=== PATIENT | male | born 1950 | race Native Hawaiian/Other Pacific Islander ===

== ENCOUNTER 2017-05-20 05:20 | Outpatient (CLI) | payer OTHER | END 2017-05-20 05:32 | disposition short-term general hospital (02) | LOC: AMB 05:20 | DX: R56.9 Unspecified convulsions (principal); E11.65 Type 2 diabetes mellitus with hyperglycemia | CPT/HCPCS: A0425; A0427 ==

== ENCOUNTER 2017-05-20 05:33 | Emergency (ER) | payer OTHER ==
[~2017-05-20] VITALS: Ht 180.3 cm; Wt 104.3 kg
[2017-05-20 06:13] LABS: PLATELET COUNT 340 K/uL (142-355)
[2017-05-20 08:01] LABS: PARTIAL THROMBOPLASTIN TIME 26.3 SECONDS (24.5-33.6)
[2017-05-20 09:30] VITALS: TEMP 97.9
[2017-05-20 10:11] LABS: POTASSIUM 4.7 mmol/L (3.6-5.2)
[2017-05-20 10:17] LABS: SODIUM 115.8 mmol/L (136-145)
[2017-05-20 11:15] VITALS: BP 175/82
== END 2017-05-20 11:58 | disposition short-term general hospital (02) ==
LOC: ED 05:33
PROC: 0T9B70Z Drainage of Bladder with Drainage Device, Via Natural or Artificial Opening (ICD-10-PCS; principal; 2017-05-20)
DX: R65.10 Systemic inflammatory response syndrome (SIRS) of non-infectious origin without acute organ dysfunction (principal); E11.10 Type 2 diabetes mellitus with ketoacidosis without coma; R56.9 Unspecified convulsions; I48.91 Unspecified atrial fibrillation; I48.92 Unspecified atrial flutter
CPT/HCPCS: 36415; 36600; 51702; 80053; 80307; 80320; 81000; 81002; 82550; 82805; 82962; 83605; 84484; 85007; 85027; 85610; 85730; 87040; 93005; 94760; 96360; 96361; 96365; 96366; 96375; 99285; J0696; J1815; J2060; J3370

== ENCOUNTER 2017-05-20 12:15 | Outpatient (CLI) | payer OTHER | END 2017-05-20 13:28 | disposition short-term general hospital (02) | LOC: AMB 12:15 | DX: R65.10 Systemic inflammatory response syndrome (SIRS) of non-infectious origin without acute organ dysfunction (principal); E11.10 Type 2 diabetes mellitus with ketoacidosis without coma; R56.9 Unspecified convulsions; I48.91 Unspecified atrial fibrillation; I48.92 Unspecified atrial flutter | CPT/HCPCS: A0425; A0427 ==

== ENCOUNTER 2018-06-04 15:17 | Outpatient (CLI) | payer OTHER | END 2018-06-04 15:27 | disposition short-term general hospital (02) | LOC: AMB 15:17 | DX: R06.02 Shortness of breath (principal) | CPT/HCPCS: A0425; A0427 ==

== ENCOUNTER 2018-06-04 15:30 | Emergency (ER) | payer OTHER ==
[~2018-06-04] VITALS: Ht 182.9 cm; Wt 113.4 kg
[2018-06-04 16:19] LABS: PLATELET COUNT 382 K/uL (142-355)
[2018-06-04 16:46] LABS: POTASSIUM 5.1 mmol/L (3.6-5.2)
[2018-06-04 20:41] VITALS: BP 145/83; TEMP 98
== END 2018-06-04 20:41 | disposition short-term general hospital (02) ==
LOC: ED 15:35
PROVIDERS: Family Medicine
PROC: 0T9B70Z Drainage of Bladder with Drainage Device, Via Natural or Artificial Opening (ICD-10-PCS; principal; 2018-06-04)
DX: E11.10 Type 2 diabetes mellitus with ketoacidosis without coma (principal); A41.9 Sepsis, unspecified organism; E11.52 Type 2 diabetes mellitus with diabetic peripheral angiopathy with gangrene; I96 Gangrene, not elsewhere classified; R79.89 Other specified abnormal findings of blood chemistry; R06.02 Shortness of breath
CPT/HCPCS: 36415; 36600; 51702; 80053; 81000; 81002; 82550; 82805; 82962; 83605; 83880; 84484; 85027; 85379; 87040; 87088; 87205; 93005; 94660; 96361; 96365; 96375; 99285; J1815; J1940; J2060; J2543; J3490

== ENCOUNTER 2022-02-03 08:08 | Observation (INO) | payer OTHER ==
[~2022-02-03] VITALS: Ht 167.6 cm; Wt 53.2 kg
[2022-02-03] VITALS (16 sets, daily range): BP systolic 100–149; BP diastolic 60–94; TEMP 98–98.7; Ht 167.6 cm; Wt 53.2 kg
[2022-02-03 08:43] LABS: PLATELET COUNT 254 K/uL (142-355)
[2022-02-03 08:46] LABS: POTASSIUM 4.5 mmol/L (3.6-5.2)
[2022-02-03 08:53] LABS: PARTIAL THROMBOPLASTIN TIME 26.4 SECONDS (24.5-33.6)
[2022-02-04] VITALS: BP 110/57; TEMP 98.6
[2022-02-04 04:00] VITALS: BP 105/63; TEMP 98.3
[2022-02-04 04:06] LABS: PLATELET COUNT 163 K/uL (142-355)
[2022-02-04 04:22] LABS: POTASSIUM 4.3 mmol/L (3.6-5.2)
[2022-02-04 07:48] VITALS: BP 101/64; TEMP 98.5
[2022-02-04] MEDS ORDERED: ASPIRIN CHLD81 MG PO (07:56)
[2022-02-04] MEDS ORDERED: BUDE1AER3 INH (07:56)
== END 2022-02-04 10:59 | disposition home or self-care (01) ==
LOC: ED 08:08 → MED/SURG 11:45
PROVIDERS: Emergency Medicine; ADMIT Internal Medicine; ATTEND Internal Medicine
DX: T40.2X1A Poisoning by other opioids, accidental (unintentional), initial encounter (principal); J44.9 Chronic obstructive pulmonary disease, unspecified; E86.0 Dehydration; T42.6X1A Poisoning by other antiepileptic and sedative-hypnotic drugs, accidental (unintentional), initial encounter; Y92.89 Other specified places as the place of occurrence of the external cause; F15.10 Other stimulant abuse, uncomplicated; F11.10 Opioid abuse, uncomplicated; F12.10 Cannabis abuse, uncomplicated; N17.8 Other acute kidney failure; R07.89 Other chest pain; R00.0 Tachycardia, unspecified
CPT/HCPCS: 36415; 36600; 51702; 80053; 80061; 80143; 80179; 80307; 80320; 81002; 82805; 83735; 83880; 84484; 85027; 85610; 85730; 87635; 93005; 94660; 94664; 94760; 96360; 96361; 96365; 96366; 96375; 99220; 99285; G0378; J1956; J2920; U0003